=== PATIENT | female | born 1955 | race Caucasian/White ===

== ENCOUNTER 2019-10-23 13:52 | Emergency (ER) | payer BC, OTHER ==
[2019-10-23] MEDS ORDERED: Ciprofloxacin 500 MG Tab PO ONE (13:53)
--- NOTE | 2019-10-23 14:16 | EDM.PDOC ---
ED HPI GENERAL MEDICAL PROBLEM - General Stated Complaint: CONFUSSION,TIRED, CAN'T WALK Time Seen by Provider: 10/23/19 14:08 Source of Information: Reports: Patient History Limitations: Reports: No Limitations - History of Present Illness INITIAL COMMENTS - FREE TEXT/NARRATIVE: pt comes from home with c/o feeling gen weakness, dizziness and at times double vision and difficulties focusing since she woke up this morning around 7 am , pt denies loss of vision or any HAs, neck stiffness, or any other neuro or CV or rsp or GI sx or any other associated sx or medical concerns. - Related Data Allergies Allergy/AdvReac Type Severity Reaction Status Date / Time No Known Allergies Allergy Verified 10/23/19 14:45 Home Meds: Home Meds Aspirin [Halfprin] 81 mg PO DAILY 10/23/19 [History] Losartan Potassium 50 mg PO DAILY 10/23/19 [History] ED ROS GENERAL - Review of Systems Review Of Systems: See Below Constitutional: Reports: No Symptoms HEENT: Reports: No Symptoms Respiratory: Reports: No Symptoms Cardiovascular: Reports: Dyspnea on Exertion GI/Abdominal: Reports: No Symptoms Musculoskeletal: Reports: No Symptoms Skin: Reports: No Symptoms ED EXAM, GENERAL - Physical Exam Exam: See Below Exam Limited By: No Limitations General Appearance: Alert, No Apparent Distress Eye Exam: Bilateral Eye: EOMI, PERRL Ears: Normal TMs Nose: Normal Inspection Throat/Mouth: Normal Inspection, Normal Oropharynx Head: Atraumatic, Normocephalic Neck: Normal Inspection, Supple, Non-Tender Respiratory/Chest: No Respiratory Distress, Lungs Clear, Normal Breath Sounds Cardiovascular: Normal Peripheral Pulses, Regular Rate, Rhythm, No Edema GI/Abdominal: Normal Bowel Sounds, Soft, Non-Tender Neurological: Alert, Oriented, CN II-XII Intact Course - Vital Signs Text/Narrative:: pt feels fine after Antivert given here. labs/ head CT results were explained to pt and her . pt has UTI also has findings on CT suggesting frontal lob small vessel chronic ischemia with recommendation to repeat CT in few months to r/o other etiologies. the above was explained to pt. pt was prescribed cipro X 7 days , pt to follow on the above with PCP in 1 week for recheck . Last Recorded V/S: Last Vital Signs Temp 36.8 C 10/23/19 13:52 Pulse 89 10/23/19 13:52 Resp 18 10/23/19 13:52 BP 149/73 H 10/23/19 13:52 Pulse Ox 100 10/23/19 13:52 - Orders/Labs/Meds Orders: Active Orders 24 hr Category Date Time Status Head wo Cont [CT] Stat Exams 10/23/19 14:19 Ordered Labs: Laboratory Tests 10/23/19 10/23/19 10/23/19 Range/Units 14:40 14:40 14:45 WBC 4.7 (4.5-12.0) X10-3/uL RBC 4.59 (3.23-5.20) x10(6)uL Hgb 13.3 (11.5-15.5) g/dL Hct 40.1 (30.0-51.3) % MCV 87.3 (80-96) fL MCH 28.9 (27.7-33.6) pg MCHC 33.1 (32.2-35.4) g/dL RDW 14.1 (11.5-15.5) % Plt Count 222 (125-369) X10(3)uL MPV 8.2 (7.4-10.4) fL Neut % (Auto) 60.6 (46-82) % Lymph % (Auto) 26.0 (13-37) % [place] % (Auto) 12.5 H (4-12) % Eos % (Auto) 1 (1.0-5.0) % Baso % (Auto) 0 (0-2) % Neut # (Auto) 2.9 (1.6-8.3) # Lymph # (Auto) 1.2 (0.6-5.0) # [place] # (Auto) 0.6 (0.0-1.3) # Eos # (Auto) 0.0 (0.0-0.8) # Baso # (Auto) 0.0 (0.0-0.2) # Sodium 141 (135-145) mmol/L Potassium 3.9 (3.5-5.3) mmol/L Chloride 106 (100-110) mmol/L Carbon Dioxide 30 (21-32) mmol/L BUN 14 (7-18) mg/dL Creatinine 1.0 (0.55-1.02) mg/dL Est Cr Clr Drug Dosing TNP Estimated GFR (MDRD) 56 L (>60) BUN/Creatinine Ratio 14.0 (9-20) Glucose 130 H (80-116) mg/dL Calcium 8.6 (8.6-10.2) mg/dL Total Bilirubin 0.5 (0.1-1.3) mg/dL AST 15 (5-25) IU/L ALT 13 (12-36) U/L Alkaline Phosphatase 110 (56-112) IU/L Total Protein 6.9 (6.0-8.0) g/dL Albumin 3.5 (3.2-4.6) g/dL Globulin 3.4 g/dL Albumin/Globulin Ratio 1.0 Urine Color Yellow (YELLOW) Urine Appearance Slightly cloudy (CLEAR) Urine pH 5.0 (5.0-6.5) Ur Specific [place] 1.020 (1.010-1.025) Urine Protein Negative (NEGATIVE) mg/dL Urine Glucose (UA) Normal (NORMAL) mg/dL Urine Ketones Negative (NEGATIVE) mg/dL Urine Occult Blood Large H (NEGATIVE) Urine Nitrite Negative (NEGATIVE) Urine Bilirubin Negative (NEGATIVE) Urine Urobilinogen Normal (NEGATIVE) mg/dL Ur Leukocyte Esterase Large H (NEGATIVE) Urine RBC 5-10 H (0-5) Urine WBC 10-20 H (0-5) Ur Squamous Epith Cells Moderate H (NS,R,O) Urine Bacteria Few H (NS) Meds: Medications Discontinued Medications Generic Name Dose Route Start Last Admin Trade Name Freq PRN Reason Stop Dose Admin Meclizine HCl 50 mg 10/23/19 14:19 10/23/19 14:45 Antivert PO 10/23/19 14:20 50 mg ONETIME ONE Administration Departure - Departure Time of Disposition: 15:36 Disposition: Home, Self-Care 01 Clinical Impression: UTI (urinary tract infection) - Discharge Information Referrals: Azar Gramajo MD [Primary Care Provider] - - My Orders Last 24 Hours: My Active Orders 10/23/19 14:19 Head wo Cont [CT] Stat - Assessment/Plan Last 24 Hours: My Active Orders 10/23/19 14:19 Head wo Cont [CT] Stat
[2019-10-23] MEDS ORDERED: Meclizine 25 MG Tab PO ONE (14:19)
== END 2019-10-23 15:57 | disposition home or self-care (01) ==
LOC: FB.ED 13:52
DX: N39.0 Urinary tract infection, site not specified (principal); Z79.82 Long term (current) use of aspirin
CPT/HCPCS: 36415; 70450; 80053; 81001; 85025; 99285; A9270

== ENCOUNTER 2022-09-21 16:01 | Emergency (ER) | payer BC, MEDICARE | END 2022-09-21 16:45 | disposition home or self-care (01) | LOC: FB.ED 16:01 | DX: R55 Syncope and collapse (principal); E78.00 Pure hypercholesterolemia, unspecified; Z79.82 Long term (current) use of aspirin; Z79.899 Other long term (current) drug therapy | CPT/HCPCS: 82947; 93005; 99284 ==

== ENCOUNTER 2023-08-26 22:34 | Emergency (ER) | payer MEDICARE, BC ==
[2023-08-26 23:10] LABS: BASOPHILS PERCENT AUTO 0.3 % (0.2-1.5); EOSINOPHILS PERCENT AUTO 0.3 % (0.6-8.1); HEMATOCRIT 37.8 % (34.2-48.2); HEMOGLOBIN 12.5 g/dL (11.4-15.5); LYMPHOCYTES ABSOLUTE AUTO 1.7 x10-3/uL (1.0-4.4); LYMPHOCYTES PERCENT AUTO 24.5 % (18.4-52.1); MEAN CORPUSCULAR HEMOGLOBIN 28.7 pg (23.9-33.9); MEAN CORPUSCULAR HGB CONC 33.2 g/dL (31.9-34.8); MEAN CORPUSCULAR VOLUME 86.4 fL (76.7-100.5); MEAN PLATELET VOLUME 9.4 fL (7.1-12.4); MONOCYTES ABSOLUTE AUTO 1.6 x10-3/uL (0.3-1.0); MONOCYTES PERCENT AUTO 23.2 % (4.4-15.7); NEUTROPHILS ABSOLUTE AUTO 3.6 x10-3/uL (1.5-6.3); NEUTROPHILS PERCENT AUTO 51.7 % (30.8-76.2); PLATELET COUNT,PLT 110 x10(3)uL (151-488); RED BLOOD CELL COUNT 4.37 x10(6)uL (3.60-5.20); RED CELL DISTRIBUTION WIDTH 14.6 % (12.3-16.5); WHITE BLOOD CELL COUNT,WBC 6.9 x10-3/uL (3.0-10.3)
[2023-08-26 23:14] LABS: BLOOD UREA NITROGEN,BUN 18 mg/dL (7-18); BUN/CREATININE RATIO 16.4 (9-20); CALCIUM 9.3 mg/dL (8.6-10.2); CARBON DIOXIDE,CO2 28 mmol/L (21-32); CHLORIDE,CL 105 mmol/L (100-110); CREATININE 1.1 mg/dL (0.55-1.02); ESTIMATED GFR 55 mL/min (>60); GLUCOSE RANDOM 96 mg/dL (80-116); INR 0.98 (1.00-1.24); POTASSIUM,K 3.7 mmol/L (3.5-5.3); PROTHROMBIN TIME 10.1 sec (9.0-11.1); SODIUM,NA 140 mmol/L (135-145)
[2023-08-26 23:19] LABS: A/G RATIO 0.9; ALANINE AMINOTRANSFERASE,ALT 32 U/L (12-36); ALBUMIN 3.5 g/dL (3.2-4.6); ALKALINE PHOSPHATASE 144 IU/L (56-112); ASPARTATE AMNIOTRANSFERASE,AST 27 IU/L (5-25); BILIRUBIN TOTAL 0.4 mg/dL (0.1-1.3); MAGNESIUM 2.1 mg/dL (1.8-2.5); PROTEIN TOTAL,TP 7.5 g/dL (6.0-8.0)
[2023-08-26] MEDS: Sodium Chloride 0.9% 1,000 ML IV SCH (23:20)
[2023-08-26] MEDS: Iopamidol 755 Mg/ML 100 ML Bottle IV ONE (23:36)
[2023-08-27] MEDS: Sodium Chloride 0.9% 1,000 ML IV ONE (00:23)
[2023-08-27] MEDS: Clopidogrel 75 MG Tab PO ONE (01:12)
== END 2023-08-27 01:53 | disposition home or self-care (01) ==
LOC: FB.ED 22:34
DX: I63.9 Cerebral infarction, unspecified (principal); E78.00 Pure hypercholesterolemia, unspecified; I10 Essential (primary) hypertension; E11.9 Type 2 diabetes mellitus without complications; Z79.82 Long term (current) use of aspirin; Z79.899 Other long term (current) drug therapy; Z79.84 Long term (current) use of oral hypoglycemic drugs
CPT/HCPCS: 70450; 70496; 70498; 80053; 82947; 83735; 84100; 85025; 85610; 93005; 93010; 96360; 96361; 99284; 99285-25; A9270-GY; J7030; Q9967